=== PATIENT | female | born 1955 | race Caucasian/White ===

== ENCOUNTER 2017-11-07 10:33 | Emergency (ER) | payer OTHER ==
[~2017-11-07] VITALS: Ht 170.2 cm; Wt 109.8 kg
[2017-11-07] MEDS ORDERED: LAMICTAL150 M1 (11:00)
[2017-11-07] MEDS ORDERED: SYNTHROID50 MCG (11:01)
[2017-11-07] MEDS ORDERED: TOPROL XL100 M1 (11:01)
[2017-11-07] MEDS ORDERED: VERAPAMIL ER240 MG (11:02)
[2017-11-07] MEDS ORDERED: CIPRO500 MG (11:02)
[2017-11-07] MEDS ORDERED: NORFLEX100MG (11:03)
== END 2017-11-07 11:37 | disposition home or self-care (01) ==
LOC: ER 10:33
DX: M54.5 Low back pain (principal)